=== PATIENT | female | born 1960 | race Caucasian/White ===

== ENCOUNTER 2017-02-07 06:43 | Day surgery (SDC) | payer OTHER ==
[~2017-02-07] VITALS: Ht 165.1 cm; Wt 88.0 kg
[~2017-02-07 06:43] MED LIST: CANDESARTAN; LEVOTHYROXINE; METFORMIN; OMEPRAZOLE
[2017-02-07 07:30] VITALS: Ht 165.1 cm; Wt 88.0 kg
[2017-02-07 07:49] VITALS: BP 110/62; PULSE 66; RESP 15
[2017-02-07] MEDS ORDERED: LIDOCAINE 2% (SDV) 5 ML INJ ONE (08:07)
[2017-02-07] MEDS ORDERED: MIDAZOLAM 1 MG/ML 2 ML INJ ONE (08:07)
[2017-02-07] MEDS ORDERED: PROPOFOL 40 ML ONE (08:07)
[2017-02-07 09:20] VITALS: BP 111/59; PULSE 64; RESP 16
--- NOTE | 2017-02-07 11:23 | GILP ---
DATE OF PROCEDURE: INDICATION: A 56-year-old female undergoing this procedure for a positive stool guaiac. She is als o constipated and gets occasional heartburn. INFORMED CONSENT: The risk of the procedure, related and unrelated complications, anesthetic risks, alternatives discussed. Informed consent was obtained. DESCRIPTION OF PROCEDURE: The patient was brought to the GI lab, sedated by the anesthesiologist. After optimal sedation, scope was passed with much ease into esophagus which was grossly within norm al limits. Z line was at 35 cm. Z line was regular. The patient had a 2 cm hiatal hernia. Biopsy taken from the Z line to rule out Melendez's esophagus. This was done while coming out. Stomach mu cosa revealed gastritis. Four biopsies obtained randomly. Duodenum first and second part was withi n normal limits. Retroversion also was normal. Scope was straightened out and removed with good pa tient tolerance. IMPRESSION 1. Gastritis. 2. Z-line at 35 cm. 3. Rule out Melendez's. 4. Normal duodenum. PLAN: Review histopathology. COLONOSCOPY REPORT: She was turned around, scope was passed with much ease into rectum and advanced slowly near the sigmoid and descending colon. There was some difficulty to go beyond the sigmoid c olon because of the . I managed to pass gently and advanced slowly all the way into the cecum. Appendiceal orifice and IC valve identified. While coming out, mucosa thoroughly inspected. The rest of the colon was normal. Retroversion done, no growth was seen. Scope was straightened out an d removed with good patient tolerance. IMPRESSION: 1. Normal findings all the way up to cecum. 2. Clarity and cleanliness was good. 3. Normal retroversion. PLAN: Monitor H and H. Dictated By: BRIT ARAUJO MD PJ/NTS Conf#: [id number] DID#: [id number] CC: LAURYN DING MD;*End*
== END 2017-02-07 11:36 | disposition home or self-care (01) ==
LOC: GIL 06:43
PROVIDERS: ATTEND Internal Medicine Gastroenterology
DX: K29.50 Unspecified chronic gastritis without bleeding (principal); I10 Essential (primary) hypertension; E11.9 Type 2 diabetes mellitus without complications; E03.9 Hypothyroidism, unspecified
CPT/HCPCS: 43239; 82962; 88305; 88312; 88313; J2250; Z7610